=== PATIENT | male | born 1980 | race African-American/Black ===

== ENCOUNTER 2022-06-29 23:58 | Inpatient (IN) | payer OTHER ==
[2022-06-30 00:22] VITALS: BMI 25.0
[2022-06-30] MEDS ORDERED: ACETAMINOPHEN 1000 MG/100 ML BAG IVPB ONE (03:31)
[2022-06-30] MEDS ORDERED: CEFEPIME HCL/D5W 2 GM/50 ML BAG IVPB ONE (03:41)
[2022-06-30] MEDS ORDERED: VANCOMYCIN 1 GM in D5W (PRE-DOCKED) 1,000 MG/250 ML IVPB ONE (03:42)
[2022-06-30 03:43] LABS: BASO % 0.5 % (0-2.0); EOS % 3.3 % (0-4.5); MCH 27.7 pg (25.7-33.7); MCHC 33.3 g/dl (32.0-35.9); MEAN CELL VOLUME 83.3 fl (80-96); MONO % 18.4 % (3.8-10.2); NEUT % 42.8 % (42.8-82.8); PLATELET COUNT 125 10^3/uL (134-434); RBC 3.97 M/mm3 (4.00-5.60); RDW 13.5 % (11.9-15.9)
[2022-06-30 03:49] LABS: INR 1.09 (0.83-1.09); PROTHROMBIN TIME (PATIENT) 12.5 SEC (9.7-13.0)
[2022-06-30] MEDS ORDERED: ACETAMINOPHEN INJECTION 100 ML IVPB ONE (03:59)
[2022-06-30] MEDS ORDERED: VANCOMYCIN/WATER FOR INJ (PEG) 1,000 MG/200 ML BAG IVPB ONE (04:00)
[2022-06-30 04:02] LABS: ALBUMIN 2.8 g/dl (3.4-5.0); CALCIUM 8.5 mg/dL (8.5-10.1)
[2022-06-30 04:03] LABS: BLOOD UREA NITROGEN 8.9 mg/dL (7-18)
[2022-06-30 04:05] LABS: CREATININE 1.3 mg/dL (0.55-1.3)
[2022-06-30 04:07] LABS: BILIRUBIN,TOTAL 0.2 mg/dL (0.2-1); TOT PROT 6.9 g/dl (6.4-8.2)
[2022-06-30] MEDS ORDERED: CEFEPIME 2 GM/100 ML BAG IVPB ONE (06:09)
[2022-06-30] MEDS ORDERED: LORazepam 1 MG TABLET PO PRN ×2 (06:29→11:43)
[2022-06-30] MEDS ORDERED: FOLIC ACID 1 MG TABLET (FP) PO ONE (06:29)
[2022-06-30] MEDS ORDERED: THIAMINE HCL 200 MG/2 ML VIAL IVPB ONE (09:00)
[2022-06-30] MEDS ORDERED: THIAMINE HCL 200 MG/2 ML VIAL IVPB SCH (10:00)
[2022-06-30] MEDS: CEFEPIME 1 GM in DEXTROSE 5%-WATER 100 ML IVPB SCH ×2 (10:32→22:03)
[2022-06-30] MEDS: ENOXAPARIN NA (PORCINE) 40 MG/0.4 ML DISP.SYRIN SQ SCH (10:37)
[2022-06-30] MEDS ORDERED: LORazepam 1 MG TABLET PO SCH (11:00)
[2022-06-30 15:38] VITALS: RESP 20
[2022-06-30] MEDS ORDERED: VANCOMYCIN/WATER 1,250 MG/250 ML BAG (RESTRICTED TO ID ONLY) IVPB SCH (16:00)
[2022-06-30] MEDS: BICTEGRAV/EMTRICIT/TENOFOV (BIKTARVY) 50-200-25 MG TABLET PO SCH (16:35)
[2022-06-30 17:44] LABS: PH,URINE 7.5 (5.0-8.0); URINE APPEARANCE CLEAR; URINE BILIRUBIN NEGATIVE (NEGATIVE); URINE COLOR YELLOW; URINE GLUCOSE (UA) NEGATIVE (NEGATIVE); URINE KETONE NEGATIVE (NEGATIVE); URINE LEUK ESTERASE NEGATIVE (NEGATIVE); URINE NITRITE NEGATIVE (NEGATIVE); URINE PROTEIN NEGATIVE (NEGATIVE); URINE UROBILINOGEN 0.2 mg/dL (0.2-1.0)
[2022-07-01 05:31] VITALS: BP 106/64; PULSE 88; TEMP 98.3
[2022-07-01] MEDS: BICTEGRAV/EMTRICIT/TENOFOV (BIKTARVY) 50-200-25 MG TABLET PO SCH ×2 (07:57→09:18)
[2022-07-01] MEDS: ENOXAPARIN NA (PORCINE) 40 MG/0.4 ML DISP.SYRIN SQ SCH (09:18)
[2022-07-01] MEDS ORDERED: CEFEPIME 1 GM in DEXTROSE 5%-WATER 100 ML IVPB SCH (10:00)
[2022-07-01 12:22] LABS: HEMATOCRIT 36.9 % (35.4-49); HEMOGLOBIN 12.4 GM/dL (11.7-16.9); MCH 27.8 pg (25.7-33.7); MCHC 33.5 g/dl (32.0-35.9); MEAN CELL VOLUME 82.9 fl (80-96); PLATELET COUNT 144 10^3/uL (134-434); RBC 4.45 M/mm3 (4.00-5.60); RDW 13.3 % (11.9-15.9); WHITE BLOOD COUNT 5.7 K/mm3 (4.0-10.0)
[2022-07-01 12:49] LABS: CALCIUM 9.6 mg/dL (8.5-10.1); MAGNESIUM 1.7 mg/dL (1.8-2.4)
[2022-07-01 12:51] LABS: CREATININE 1.5 mg/dL (0.55-1.3)
[2022-07-01 12:53] LABS: BILIRUBIN,TOTAL 0.2 mg/dL (0.2-1); TOT PROT 7.3 g/dl (6.4-8.2)
[2022-07-01] MEDS ORDERED: MAGNESIUM SULF 50% (8.12 MEQ/2 ML-1 GM VIAL) IVPB ONE (14:05)
[2022-07-01] MEDS ORDERED: SODIUM CHLORIDE 1,000 ML IV SCH (15:00)
[2022-07-01] MEDS ORDERED: VANCOMYCIN/WATER 1,250 MG/250 ML BAG (RESTRICTED TO ID ONLY) IVPB SCH (16:00)
[2022-07-02] MEDS ORDERED: LORazepam 1 MG TABLET PO SCH (05:00)
[2022-07-03] MEDS ORDERED: LORazepam 0.5 MG TABLET PO PRN
[2022-07-03] MEDS ORDERED: LORazepam 0.5 MG TABLET PO SCH (05:00)
[2022-07-04] MEDS ORDERED: LORazepam 0.5 MG TABLET PO ONE (05:00)
== END 2022-07-01 14:57 | disposition left against medical advice (07) | DRG 894 ==
LOC: JER 23:58 → JERBED 06-30 04:50 → J6S 06-30 09:05
PROVIDERS: ADMIT Internal Medicine; ATTEND Internal Medicine
DX: L03.115 Cellulitis of right lower limb (principal); F20.9 Schizophrenia, unspecified; F10.10 Alcohol abuse, uncomplicated; F14.10 Cocaine abuse, uncomplicated; M86.8X7 Other osteomyelitis, ankle and foot; L97.319 Non-pressure chronic ulcer of right ankle with unspecified severity; J45.909 Unspecified asthma, uncomplicated; B20 Human immunodeficiency virus [HIV] disease; F19.10 Other psychoactive substance abuse, uncomplicated; D64.9 Anemia, unspecified; M79.672 Pain in left foot; F17.210 Nicotine dependence, cigarettes, uncomplicated
CPT/HCPCS: 0241U-QW; 36415; 73610-TC-LT-FY; 73630-TC-LT; 80053; 81003; 83605; 83735; 84100; 85025; 85027; 85610; 85730; 86850; 86900; 86901; 87040; 87086; 99285-25

== ENCOUNTER 2024-07-17 15:49 | Inpatient (IN) | payer OTHER ==
[2024-07-17 17:47] VITALS: RESP 18
[2024-07-17] MEDS ORDERED: PIPERACILLIN/TAZOB 3.375 GM 3.375 GM/50 ML BAG IVPB ONE (19:11)
[2024-07-17] MEDS ORDERED: VANCOMYCIN/WATER 1250 MG 1,250 MG/250 ML BAG IVPB ONE (19:12)
[2024-07-17] MEDS: PIPERACILLIN/TAZOB 3.375 GM 3.375 GM in DEXTROSE 5%-WATER - 50 ML IVPB ONE (19:20)
[2024-07-17] MEDS: VANCOMYCIN/WATER 1250 MG 1,250 MG/250 ML BAG IVPB ONE (19:28)
[2024-07-17 19:32] LABS: BASO % 0.6 % (0-2.0); EOS % 3.5 % (0-4.5); HEMATOCRIT 34.4 % (35.4-49); HEMOGLOBIN 11.1 GM/dL (11.7-16.9); LYMPH % 38.7 % (8-40); MCH 25.1 pg (25.7-33.7); MCHC 32.4 g/dl (32.0-35.9); MEAN CELL VOLUME 77.4 fl (80-96); MEAN PLT VOLUME 8.2 fl (7.5-11.1); NEUT % 47.2 % (42.8-82.8); PLATELET COUNT 156 10^3/uL (134-434); RBC 4.44 M/mm3 (4.00-5.60); RDW 18.9 % (11.9-15.9); WHITE BLOOD COUNT 3.6 K/mm3 (4.0-10.0)
[2024-07-17 19:46] LABS: POTASSIUM 4.1 mmol/L (3.5-5.1)
[2024-07-17 19:48] LABS: CALCIUM 8.3 mg/dL (8.5-10.1)
[2024-07-17 19:49] LABS: ALBUMIN 2.7 g/dl (3.4-5.0); BLOOD UREA NITROGEN 19.8 mg/dL (7-18)
[2024-07-17 19:52] LABS: CREATININE 1.3 mg/dL (0.55-1.3)
[2024-07-17 19:55] LABS: BILIRUBIN,TOTAL 0.2 mg/dL (0.2-1); TOT PROT 7.8 g/dl (6.4-8.2)
[2024-07-17 20:42] LABS: ERYTHROCYTE SEDIMENTATION RATE 33 mm/hr (0-10)
[2024-07-17] MEDS ORDERED: KETOROLAC TROMETHAMINE 15 MG/ML VIAL ONE (23:33)
[2024-07-17] MEDS: KETOROLAC TROMETHAMINE 15 MG/ML VIAL IVPUSH ONE (23:41)
[2024-07-18 01:12] VITALS: BMI 24.5
[2024-07-18] MEDS ORDERED: guaiFENesin 200 MG/10 ML 10 ML UNIT-DOSE CUPS PO PRN (01:35)
[2024-07-18] MEDS ORDERED: ACETAMINOPHEN 325 MG TABLET (FP) PO PRN ×2 (01:35→20:36)
[2024-07-18] MEDS: FUROSEMIDE 40 MG/4 ML INJECTABLE VIAL IVPUSH ONE (08:19)
[2024-07-18] MEDS ORDERED: MULTIVITAMINS (DAILY MVI) TABLET (FP) PO SCH (10:00)
[2024-07-18] MEDS: THIAMINE 100 MG TABLET PO SCH (10:27)
[2024-07-18] MEDS: MULTIVITAMINS (DAILY MVI) TABLET (FP) PO SCH (10:27)
[2024-07-18] MEDS: FOLIC ACID 1 MG TABLET (FP) PO SCH (10:28)
[2024-07-18] MEDS: FUROSEMIDE 40 MG/4 ML INJECTABLE VIAL IVPUSH SCH (10:28)
[2024-07-18] MEDS: BUDESONIDE/FORMETEROL FUMARATE 80/4.5 mcg INHALER IH SCH ×2 (10:28→18:08)
[2024-07-18] MEDS ORDERED: ACETAMINOPHEN 1000 MG/100 ML BAG IVPB PRN (11:00)
[2024-07-18 11:38] LABS: HEMOGLOBIN 11.3 GM/dL (11.7-16.9); MCH 24.3 pg (25.7-33.7); MCHC 31.4 g/dl (32.0-35.9); MEAN CELL VOLUME 77.5 fl (80-96); MEAN PLT VOLUME 8.7 fl (7.5-11.1); PLATELET COUNT 150 10^3/uL (134-434); RBC 4.64 M/mm3 (4.00-5.60); RDW 18.2 % (11.9-15.9); WHITE BLOOD COUNT 3.1 K/mm3 (4.0-10.0)
[2024-07-18] MEDS: CHOLECALCIFEROL (VIT D3) 400 UNIT (10 MCG) TABLET PO SCH (11:46)
[2024-07-18 11:58] LABS: POTASSIUM 4.2 mmol/L (3.5-5.1)
[2024-07-18 12:01] LABS: MAGNESIUM 1.6 mg/dL (1.8-2.4)
[2024-07-18 12:02] LABS: CALCIUM 8.4 mg/dL (8.5-10.1)
[2024-07-18 12:03] LABS: ALBUMIN 2.7 g/dl (3.4-5.0); BLOOD UREA NITROGEN 19.3 mg/dL (7-18)
[2024-07-18 12:05] LABS: CREATININE 1.5 mg/dL (0.55-1.3)
[2024-07-18 12:06] LABS: PHOSPHOROUS 2.6 mg/dL (2.5-4.9)
[2024-07-18 12:08] LABS: BILIRUBIN,TOTAL 0.2 mg/dL (0.2-1); TOT PROT 7.6 g/dl (6.4-8.2)
[2024-07-18 15:08] LABS: HIV INTERPRETATION PRESUMPTIVE POSITIVE (NEGATIVE)
[2024-07-18] MEDS: CEFAZOLIN 2 GM in DEXTROSE 5%-WATER - 50 ML IVPB SCH (17:35)
[2024-07-18] MEDS ORDERED: KETOROLAC TROMETHAMINE 15 MG/ML VIAL IVPUSH PRN (20:36)
[2024-07-19] MEDS: CEFAZOLIN 2 GM/D5W 2 GM/50 ML ML IVPB SCH (01:32)
[2024-07-19 10:04] LABS: HEMOGLOBIN 11.7 GM/dL (11.7-16.9); MCH 25.1 pg (25.7-33.7); MCHC 32.6 g/dl (32.0-35.9); MEAN PLT VOLUME 8.2 fl (7.5-11.1); PLATELET COUNT 150 10^3/uL (134-434); RBC 4.67 M/mm3 (4.00-5.60); RDW 18.1 % (11.9-15.9); WHITE BLOOD COUNT 2.7 K/mm3 (4.0-10.0)
[2024-07-19 10:29] LABS: CALCIUM 8.7 mg/dL (8.5-10.1)
[2024-07-19 10:30] LABS: BLOOD UREA NITROGEN 17.8 mg/dL (7-18)
[2024-07-19 10:33] LABS: CREATININE 1.5 mg/dL (0.55-1.3)
[2024-07-19] MEDS ORDERED: guaiFENesin 200 MG/10 ML 10 ML UNIT-DOSE CUPS PO PRN (17:50)
[2024-07-20 09:22] LABS: HEMATOCRIT 36.3 % (35.4-49); HEMOGLOBIN 11.8 GM/dL (11.7-16.9); MCHC 32.4 g/dl (32.0-35.9); MEAN CELL VOLUME 77.3 fl (80-96); MEAN PLT VOLUME 8.5 fl (7.5-11.1); PLATELET COUNT 155 10^3/uL (134-434); WHITE BLOOD COUNT 2.8 K/mm3 (4.0-10.0)
[2024-07-20 09:51] LABS: POTASSIUM 3.7 mmol/L (3.5-5.1)
[2024-07-20 09:56] LABS: CALCIUM 8.5 mg/dL (8.5-10.1)
[2024-07-20 09:57] LABS: BLOOD UREA NITROGEN 19.4 mg/dL (7-18); MAGNESIUM 1.7 mg/dL (1.8-2.4)
[2024-07-20 10:00] LABS: CREATININE 1.5 mg/dL (0.55-1.3); PHOSPHOROUS 3.3 mg/dL (2.5-4.9)
[2024-07-20] MEDS: MAGNESIUM SULFATE IN WATER 2 GM/50 ML IVPB IVPB ONE (17:46)
[2024-07-20] MEDS ORDERED: CEPHALEXIN MONOHYDRATE 500 MG CAPSULE (UD) PO SCH (22:00)
[2024-07-20] MEDS ORDERED: SULFAMETHOXAZOLE/TRIMETHOPRIM 800MG/160MG D.S. TABLET PO SCH (22:00)
[2024-07-21] MEDS: SULFAMETHOXAZOLE/TRIMETHOPRIM 800MG/160MG D.S. TABLET PO SCH (06:21)
[2024-07-21 09:36] LABS: HEMATOCRIT 35.6 % (35.4-49); HEMOGLOBIN 11.6 GM/dL (11.7-16.9); MCHC 32.5 g/dl (32.0-35.9); MEAN CELL VOLUME 76.9 fl (80-96); MEAN PLT VOLUME 8.2 fl (7.5-11.1); PLATELET COUNT 159 10^3/uL (134-434); RBC 4.63 M/mm3 (4.00-5.60); WHITE BLOOD COUNT 3.4 K/mm3 (4.0-10.0)
[2024-07-21 09:58] LABS: POTASSIUM 4.3 mmol/L (3.5-5.1)
[2024-07-21 10:01] LABS: CALCIUM 8.7 mg/dL (8.5-10.1)
[2024-07-21 10:02] LABS: BLOOD UREA NITROGEN 23.4 mg/dL (7-18); MAGNESIUM 1.8 mg/dL (1.8-2.4)
[2024-07-21 10:05] LABS: CREATININE 1.3 mg/dL (0.55-1.3)
[2024-07-21] MEDS: GABAPENTIN 100 MG CAPSULE PO SCH (15:18)
[2024-07-21] MEDS: ACETAMINOPHEN 500 MG TABLET (FP) PO SCH (15:18)
[2024-07-21] MEDS: CEPHALEXIN MONOHYDRATE 500 MG CAPSULE (UD) PO SCH (17:13)
[2024-07-22 02:31] VITALS: PULSE 95
[2024-07-22 09:06] LABS: HEMATOCRIT 37.1 % (35.4-49); MEAN CELL VOLUME 76.7 fl (80-96); RBC 4.83 M/mm3 (4.00-5.60); WHITE BLOOD COUNT 2.8 K/mm3 (4.0-10.0)
[2024-07-22 09:07] LABS: MCH 24.8 pg (25.7-33.7); MCHC 32.3 g/dl (32.0-35.9); MEAN PLT VOLUME 8.3 fl (7.5-11.1); PLATELET COUNT 180 10^3/uL (134-434); RDW 18.2 % (11.9-15.9)
[2024-07-22 09:47] LABS: POTASSIUM 4.1 mmol/L (3.5-5.1)
[2024-07-22 09:49] LABS: BLOOD UREA NITROGEN 19.8 mg/dL (7-18)
[2024-07-22 09:53] LABS: CREATININE 1.4 mg/dL (0.55-1.3)
[2024-07-22 14:43] VITALS: BP 101/78; TEMP 98.8
== END 2024-07-22 14:45 | disposition other institution (70) | DRG 197 ==
LOC: JER 15:49 → JERBED 18:25 → OBSVTOIN 07-18 01:32 → J5S 07-18 03:56 → J6S 07-19 21:11
PROVIDERS: ADMIT Internal Medicine; ATTEND Internal Medicine
DX: I83.018 Varicose veins of right lower extremity with ulcer other part of lower leg (principal); I83.028 Varicose veins of left lower extremity with ulcer other part of lower leg; L97.818 Non-pressure chronic ulcer of other part of right lower leg with other specified severity; L97.828 Non-pressure chronic ulcer of other part of left lower leg with other specified severity; F14.20 Cocaine dependence, uncomplicated; F15.20 Other stimulant dependence, uncomplicated; F12.90 Cannabis use, unspecified, uncomplicated; R05.9 Cough, unspecified; D72.819 Decreased white blood cell count, unspecified; F20.9 Schizophrenia, unspecified; D64.9 Anemia, unspecified; F17.210 Nicotine dependence, cigarettes, uncomplicated; G31.84 Mild cognitive impairment of uncertain or unknown etiology; Z91.148 Patient's other noncompliance with medication regimen for other reason; Z59.00 Homelessness unspecified; Z21 Asymptomatic human immunodeficiency virus [HIV] infection status
CPT/HCPCS: 0241U-QW; 36415; 71045-TC-FY; 80048; 80053; 80305; 80307; 82728; 82962; 83540; 83550; 83735; 84100; 85025; 85027; 85651; 86140; 86359; 86360; 87070; 87081; 87186; 87205; 87389; 93005; 93010; 93306-TC; 93970-TC; 97116-GP; 97161-GP; 99285-25; G0378

== ENCOUNTER 2024-07-22 15:25 | Inpatient (IN) | payer OTHER ==
[2024-07-22 15:47] VITALS: BMI 25.0
[2024-07-22] MEDS ORDERED: MAG HYDROX/AL HYDROX/SIMETH 30 ML UNIT-DOSE CUP PO PRN (16:11)
[2024-07-22] MEDS ORDERED: IBUPROFEN 600 MG TABLET (FP) PO PRN (16:11)
[2024-07-22] MEDS ORDERED: MAGNESIUM HYDROX 2400MG/30ML ORAL SUSPENSION 30 ML CUP PO PRN (16:11)
[2024-07-22] MEDS ORDERED: POLYETHYLENE GLYCOL (HEALTHYLAX) 3350 17 GM PACKET PO PRN (16:11)
[2024-07-22] MEDS ORDERED: LOPERAMIDE HCL 2 MG CAPSULE PO PRN (16:11)
[2024-07-22] MEDS ORDERED: ACETAMINOPHEN 325 MG TABLET (FP) PO PRN (16:11)
[2024-07-22] MEDS ORDERED: IBUPROFEN 400 MG TABLET (FP) PO PRN (16:11)
[2024-07-22] MEDS ORDERED: BENZOCAINE/MENTHOL (CHLORASEPTIC ) LOZENGE MM PRN (16:11)
[2024-07-22] MEDS ORDERED: BENZONATATE 200 MG CAPSULE PO PRN (16:11)
[2024-07-22] MEDS ORDERED: NICOTINE POLACRILEX 2 MG GUM BUC PRN (16:11)
[2024-07-22] MEDS ORDERED: guaiFENesin 600 MG TABLET.ER (FP) PO PRN (16:11)
[2024-07-22] MEDS ORDERED: ALBUTEROL SO4 HFA INHALER IH PRN (16:30)
[2024-07-22] MEDS: NALTREXONE HCL 50 MG TABLET PO ONE (18:08)
[2024-07-22] MEDS ORDERED: TUBERCULIN PPD 5 TU/0.1ML VIAL ID ONE (20:33)
[2024-07-22] MEDS: TUBERCULIN PPD 5 TU/0.1ML SYRINGE (IN PATIENT USE ONLY) ID ONE (20:36)
[2024-07-22] MEDS: SULFAMETHOXAZOLE/TRIMETHOPRIM 800MG/160MG D.S. TABLET PO SCH (21:05)
[2024-07-22] MEDS: THIAMINE 100 MG TABLET PO SCH (21:05)
[2024-07-22] MEDS: hydrOXYzine PAMOATE 25 MG CAPSULE (FP) PO PRN (21:05)
[2024-07-22] MEDS: MELATONIN 5 MG TABLETS PO SCH (21:05)
[2024-07-22] MEDS: MIRTAZAPINE 15 MG TABLET (FP) PO SCH (21:05)
[2024-07-22] MEDS: CEPHALEXIN MONOHYDRATE 500 MG CAPSULE (UD) PO SCH (21:06)
[2024-07-23] MEDS: NALTREXONE HCL 50 MG TABLET PO SCH (10:32)
[2024-07-23] MEDS: PRENATAL VITAMINS W/ FOLIC ACID TABLET (FP) PO SCH (10:32)
[2024-07-23] MEDS: BICTEGRAV/EMTRICIT/TENOFOV (BIKTARVY) 50-200-25 MG TABLET PO SCH (10:32)
[2024-07-23] MEDS: BUDESONIDE/FORMETEROL FUMARATE 160/4.5 mcg INHALER IH SCH (10:35)
[2024-07-23 11:38] LABS: HEMATOCRIT 36.4 % (35.4-49); HEMOGLOBIN 11.4 GM/dL (11.7-16.9); MCH 24.5 pg (25.7-33.7); MCHC 31.3 g/dl (32.0-35.9); MEAN CELL VOLUME 78.3 fl (80-96); MEAN PLT VOLUME 9.2 fl (7.5-11.1); PLATELET COUNT 190 10^3/uL (134-434); RBC 4.65 M/mm3 (4.00-5.60); WHITE BLOOD COUNT 3.2 K/mm3 (4.0-10.0)
[2024-07-23 13:04] LABS: CHLORIDE 106 mmol/L (98-107); POTASSIUM 4.2 mmol/L (3.5-5.1); SODIUM 137 mmol/L (136-145)
[2024-07-23 13:07] LABS: CALCIUM 8.8 mg/dL (8.5-10.1)
[2024-07-23 13:08] LABS: ALBUMIN 2.9 g/dl (3.4-5.0); ANION GAP 5 mmol/L (4-13); BLOOD UREA NITROGEN 15.1 mg/dL (7-18); CO2 25 mmol/L (21-32); GLUCOSE,RANDOM 88 mg/dL (74-106)
[2024-07-23 13:11] LABS: CREATININE 1.4 mg/dL (0.55-1.3); SGOT/AST 39 U/L (15-37); SGPT/ALT 46 U/L (13-61)
[2024-07-23 13:13] LABS: BILIRUBIN,TOTAL 0.3 mg/dL (0.2-1); TOT PROT 7.5 g/dl (6.4-8.2)
[2024-07-23 13:14] LABS: ALK PHOS 184 U/L (45-117)
[2024-07-23 15:17] LABS: SYPHILIS W/ RPR CONF REACTIVE (NONREACTIVE)
[2024-07-23 15:45] LABS: HCV DIAGNOSTIC IN-HOUSE W/RFLX NON-REACTIVE (NONREACTIVE)
[2024-07-23 19:08] LABS: EPI CELLS 8 /uL (0-25.1); HYALINE CASTS 0 /uL (0-3.1); URINE APPEARANCE CLEAR; URINE BACTERIA 5 /uL (0-1359); URINE BILIRUBIN NEGATIVE (NEGATIVE); URINE COLOR YELLOW; URINE GLUCOSE (UA) NEGATIVE (NEGATIVE); URINE KETONE NEGATIVE (NEGATIVE); URINE LEUK ESTERASE NEGATIVE (NEGATIVE); URINE NITRITE NEGATIVE (NEGATIVE); URINE PROTEIN 1+ (NEGATIVE); URINE RBC 3 /uL (0-23.9); URINE UROBILINOGEN 0.2 mg/dL (0.2-1.0); URINE WBC 3 /uL (0-25.8)
[2024-07-23] MEDS: OLANZapine 10 MG TABLET PO SCH (21:48)
[2024-07-24 06:52] VITALS: TEMP 97.7
[2024-07-24] MEDS: NALOXONE (NARCAN) HCL 4 MG/0.1 ML SPRAY NS PRN (21:56)
[2024-07-24 22:01] VITALS: BP 101/72; PULSE 97; RESP 18
== END 2024-07-24 22:08 | disposition left against medical advice (07) | DRG 770 ==
LOC: YASAS 15:25 → Y3W 17:03 → Y5N 17:37
PROVIDERS: ADMIT Psychiatry & Neurology Pain Medicine; ATTEND Allergy & Immunology
PROC: HZ2ZZZZ Detoxification Services for Substance Abuse Treatment (ICD-10-PCS; principal; 2024-07-22)
DX: F14.20 Cocaine dependence, uncomplicated (principal); F10.20 Alcohol dependence, uncomplicated; F15.20 Other stimulant dependence, uncomplicated; F17.210 Nicotine dependence, cigarettes, uncomplicated; F20.9 Schizophrenia, unspecified; F19.282 Other psychoactive substance dependence with psychoactive substance-induced sleep disorder; Z21 Asymptomatic human immunodeficiency virus [HIV] infection status; L03.115 Cellulitis of right lower limb; L03.116 Cellulitis of left lower limb; Z99.89 Dependence on other enabling machines and devices; Z79.899 Other long term (current) drug therapy; Z59.00 Homelessness unspecified
CPT/HCPCS: 36415; 80053; 80305; 80307; 81003; 85027; 86593; 86780; 86803; 87811; 93005; 93010